=== PATIENT | male | born 1965 | race Caucasian/White ===

== ENCOUNTER 2020-10-27 03:54 | Inpatient (IN) | payer SELFPAY ==
[2020-10-27] VITALS (12 sets, daily range): BP systolic 114–147; BP diastolic 77–102; PULSE 88–129; TEMP 97.2–99.2
[~2020-10-27] VITALS: Ht 172.7 cm; Wt 81.8 kg
[~2020-10-27 03:54] MED LIST: B-121000 MCG PO; DUO-KAPS1 CAP PO; FOLIC ACID 11 MG/TA1 PO; MIRTAZAPINE7.5 MG PO; NO HOME MEDICATIONS; NORCO 325 MG-51 TAB PO; PREDNISONE20 MG PO; REMERON 15M15 MG/TA1 PO; THIAMINE 1100 MG/TAB PO; TOPROL XL 25MG25 MG PO
[2020-10-27 04:42] LABS: BASO # 0.1 (0.0-0.2); BASO % 1.3 % (0.0-2.0); EOS % 0.9 % (0-4.0); GRAN # 2.6 (1.4-6.5); GRAN % 57.5 % (42.2-75.2); HEMATOCRIT 44.7 % (42.0-52.0); HEMOGLOBIN 15.5 g/dl (13.5-18.0); LYMPH # 1.5 (1.2-3.4); LYMPH % 32.2 % (20.0-51.0); MEAN CELL VOLUME 106 fl (80.0-100.0); MEAN CORPUSCULAR HEMOGLOBIN 37 pg (27.0-31.0); MEAN CORPUSCULAR HGB CONC 35 g/dl (33.0-37.0); MEAN PLATELET VOLUME 9.3 fl (7.4-10.4); MONO # 0.4 (0.1-0.6); MONO % 7.9 % (1.7-9.3); PLATELET COUNT 159 K/mm3 (130-400); REDCELL DISTRIBUTION WIDTH-CV 12.3 % (11.5-14.5)
[2020-10-27 04:53] LABS: ALANINE AMINOTRANSFERASE 49 U/L (4-49); ALKALINE PHOSPHATASE 140 U/L (50-136); ANION GAP 11 mmol/L (7-16); AST,SGOT 130 U/L (15-37); BILIRUBIN,TOTAL 0.5 mg/dL (0.0-1.0); BLOOD UREA NITROGEN 9 mg/dL (9-20); CALCIUM 8.5 mg/dL (8.4-10.2); CARBON DIOXIDE 23 mmol/L (22-30); CHLORIDE 108 mmol/L (98-107); CREATININE, serum 0.83 (0.66-1.25); GLUCOSE 99 mg/dL (74-106); POTASSIUM 3.9 mmol/L (3.4-5.0); SODIUM 142 mmol/L (137-145); TOTAL PROTEIN 6.5 gm/dL (6.4-8.2)
[2020-10-27 04:56] LABS: ACETAMINOPHEN < 10 ug/mL (10-30); SALICYLATE < 1.0 mg/dL
[2020-10-27 05:03] LABS: ALCOHOL(ethanol),MEDICAL 320 mg/dL
[2020-10-27 05:15] LABS: COLLECTION METHOD CLEAN CATCH
[2020-10-27 05:28] LABS: TRICYCLIC ANTIDEPRESS URINE NEGATIVE
[2020-10-27 05:33] LABS: PH 5 (5-8); SQUAMOUS EPITHELIAL None Seen /hpf; URINE APPEARANCE Hazy; URINE BACTERIA None Seen /hpf; URINE BILIRUBIN Negative (NEGATIVE); URINE BLOOD 2+ (NEGATIVE); URINE COLOR Yellow; URINE GLUCOSE Negative (NEGATIVE); URINE KETONE Trace (NEGATIVE); URINE LEUKOCYTE ESTERASE Negative (NEGATIVE); URINE NITRATE Negative (NEGATIVE); URINE PROTEIN(semi-quant) 1+ (NEGATIVE); URINE RBC 20-50 /hpf; URINE UROBILINOGEN >=4.0 mg/dL (NEGATIVE)
--- NOTE | 2020-10-27 10:30 | NUR ---
Pt arrived to floor from ER. Resting quietly in chair at side of bed, alert and completely oriented. Drinking a lot of water. Denies needs, moderate shaking and elevated BP and anxiety, orders received to implement CIWA protocol. Will continue tomonitor.
[2020-10-27 12:47] LABS: INR 0.9 (0.8-3.0); PROTHROMBIN TIME 10.1 SECONDS (9.7-12.8)
[2020-10-27 12:49] LABS: PARTIAL THROMBOPLASTIN TIME 34.9 SECONDS (26.0-37.0)
[2020-10-27 12:50] LABS: MAGNESIUM 1.9 mg/dL (1.6-2.3)
--- NOTE | 2020-10-27 14:31 | NUR ---
Report given to ANTONI Bueno. PT in chair at side of bed resting, HR is much more tachycardic now. Still remains oriented. Called MARIEL Guillaume to assist with locating numbers for family members. Ximena to continue care.
[2020-10-27 15:34] LABS: TROPONIN-I < 0.012 ng/mL (0.000-0.035)
--- NOTE | 2020-10-27 16:01 | NUR ---
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 Doctor aware.
--- NOTE | 2020-10-27 16:08 | NUR ---
SW contacted in regards to patient's family contact or next of kin. Patient does not have any family members listed and states that he does not think it would be helpful to list them. MARIEL followed up with ED nurse in regard to information in regards to patient contacts. ER nurse Kacey stated that patient was brought in by [facility] and was informed to contact them in regards to patient care. MARIEL obtained contact number for [facility] [phone] staff member stated that patient plan was to return to [facility] upon DC and they would like to be informed of such information. SW confirmed information with patient in regards to going to [facility] upon DC. SW will continue to follow.
--- NOTE | 2020-10-27 17:50 | NUR ---
Patient has been sitting in the recliner reading a book or magazine, states that he doesnt watch TV. A&Ox3. VSS, HR tachycardic, doctor aware and being monitored. IV CDI, fludis infusing. Detox protocol in place. No further needs expressed from the patient. Call light within reach. Chair alarm on and door left open
[2020-10-28] VITALS (15 sets, daily range): BP systolic 121–150; BP diastolic 78–93; PULSE 69–165; TEMP 97.3–99.4
[2020-10-28 06:37] LABS: MEAN CELL VOLUME 110 fl (80.0-100.0); MEAN CORPUSCULAR HGB CONC 34 g/dl (33.0-37.0); MEAN PLATELET VOLUME 9.7 fl (7.4-10.4); PLATELET COUNT 116 K/mm3 (130-400); RED BLOOD COUNT 3.29 M/mm3 (4.20-5.60); REDCELL DISTRIBUTION WIDTH-CV 12.4 % (11.5-14.5)
[2020-10-28 06:39] LABS: ALBUMIN 2.9 gm/dL (3.5-5.0); CALCIUM 8.4 mg/dL (8.4-10.2); CREATININE, serum 0.72 (0.66-1.25); MAGNESIUM 1.6 mg/dL (1.6-2.3); PHOSPHOROUS 4.2 mg/dL (2.5-4.5); POTASSIUM 3.5 mmol/L (3.4-5.0)
--- NOTE | 2020-10-28 07:05 | NUR ---
Report with ANTONI Morrison. Pt up to bathroom and back to bed, slightly wobbly gait. IVF's infusing per orders. No further needs reported. Call light in reach. Bed alarm on.
[2020-10-28 07:13] LABS: HEMATOCRIT 36.3 % (42.0-52.0); HEMOGLOBIN 12.5 g/dl (13.5-18.0); MEAN CORPUSCULAR HEMOGLOBIN 38 pg (27.0-31.0)
--- NOTE | 2020-10-28 09:00 | NUR ---
Assessment complete. Pt resting in bed, A&O x 4, denies pain at this time. Physical assessment unremarkable. IVF's infusing per orders through right AC site without s/s of complications. No further needs reported. Call light in reach.
[2020-10-28 09:19] LABS: FOLATE (FOLIC ACID) >20.0 ng/mL (7.0-31.4)
--- NOTE | 2020-10-28 10:45 | NUR ---
Pt having increased anxiety after being up to use bathroom and talking with PA. Tremors to bilat upper ext increased. PRN Ativan administered per protocol.
[2020-10-28 10:57] LABS: COLLECTION METHOD CLEAN CATCH
[2020-10-28 11:11] LABS: MUCOUS Present /lpf; PH 6 (5-8); URINE APPEARANCE Clear; URINE BACTERIA None Seen /hpf; URINE BILIRUBIN Negative (NEGATIVE); URINE BLOOD Negative (NEGATIVE); URINE COLOR Yellow; URINE GLUCOSE Negative (NEGATIVE); URINE KETONE Negative (NEGATIVE); URINE LEUKOCYTE ESTERASE Negative (NEGATIVE); URINE NITRATE Negative (NEGATIVE); URINE PROTEIN(semi-quant) Negative (NEGATIVE); URINE RBC 0-2 /hpf; URINE UROBILINOGEN Negative (NEGATIVE); URINE WBC 0-2 /hpf
[2020-10-28 11:23] LABS: SQUAMOUS EPITHELIAL 0-2 /hpf
--- NOTE | 2020-10-28 11:23 | NUR ---
SW met with patient to conduct intake assessment. Patient lives at home alone in [place]. Patient states that his ex Lakesha Lara is his DPOA-HC. The phone number listed for Lakesha does not work. Patient does not have his phone and is unable to verify Lakesha's phone number. Patient reports that he has paperwork at home. SW requested that patient bring a copy to the hospital after discharge for records. Patient confirmed understanding and agreed. Patient does not have DME and requires no assistance with ADLs. Patient does not have a PCP but would like to be set up with one through [facility] or [facility]. MARIEL relayed this information to RN Shayna would will "leave a note" for staff to address during the weekday. Patient uses [facility] for pharmacy needs. Patient plans to return home at discharge. Per patient request, he wanted family contacted to notify them of his admission. At this time, the only number SW can find is a non-functional number for ex- Summer Lara ([phone]). SW will continue to look. Per RN statement, patient was admitted due to desire for substance use treatment. Due to self pay status, patient was provided with phone number for [facility] and insructed that he would have to call [facility] himself and arrange for intake assessment. Patient confirmed understanding. Phone number for [facility] was provided to patient. SW placed a call to Alice Garcia in finance due to: patient's self pay status and patient desire for assistance. Patient reported that he is unemployed and would like to know if there is any assistance that can be provided to him. SW did instruct patient that he would need to file for unemployment but that SW will inquire if [facility] can assist him. Patient would also like assistance with medicaid eligibility and application assisatnce in addition to reagan appliation for assistance paying for hospital stay. Patient will need assistance with medication assistance; however, patient will not discharge today. Please follow up on Thursday for medication assistance voucher if patient is discharging. There were no other questions or concerns at this time. Social work will continue to follow as needs progress.
--- NOTE | 2020-10-28 18:50 | NUR ---
Report with ANTONI Morrison. Pt sitting up in bed visiting with family, questions invited and answered, denies needs at this time. Call light in reach. Bed alarm on.
[2020-10-29] VITALS (10 sets, daily range): BP systolic 113–146; BP diastolic 81–92; PULSE 72–107; TEMP 97.6–98.5
[2020-10-29 06:43] LABS: BASO % 0.3 % (0.0-2.0); EOS # 0.1 (0.0-0.7); EOS % 1.5 % (0-4.0); GRAN # 4.4 (1.4-6.5); HEMATOCRIT 38.3 % (42.0-52.0); HEMOGLOBIN 13.1 g/dl (13.5-18.0); LYMPH # 1.1 (1.2-3.4); LYMPH % 17.9 % (20.0-51.0); MEAN CELL VOLUME 109 fl (80.0-100.0); MEAN CORPUSCULAR HEMOGLOBIN 37 pg (27.0-31.0); MEAN CORPUSCULAR HGB CONC 34 g/dl (33.0-37.0); MEAN PLATELET VOLUME 9.6 fl (7.4-10.4); MONO # 0.3 (0.1-0.6); MONO % 5.1 % (1.7-9.3); PLATELET COUNT 102 K/mm3 (130-400); RED BLOOD COUNT 3.51 M/mm3 (4.20-5.60); REDCELL DISTRIBUTION WIDTH-CV 12.1 % (11.5-14.5)
[2020-10-29 06:46] LABS: ALBUMIN 3.1 gm/dL (3.5-5.0); BILIRUBIN,TOTAL 0.9 mg/dL (0.0-1.0); CALCIUM 8.8 mg/dL (8.4-10.2); CREATININE, serum 0.6 (0.66-1.25); POTASSIUM 3.2 mmol/L (3.4-5.0); TOTAL PROTEIN 5.4 gm/dL (6.4-8.2)
--- NOTE | 2020-10-29 07:00 | NUR ---
Report received form ANTONI Morrison. PT in bed resting with eyes closed, will continue to monitor.
--- NOTE | 2020-10-29 09:30 | NUR ---
Initial visit; Patient was receptive to Oncology Social Work offering prayer and God's blessings. Oncology Social Work spoke briefly with patient about his health issues and mentioned that she is available to listen and offer help and prayer.
--- NOTE | 2020-10-29 10:53 | NUR ---
Assessment charted. Pt alert and oriented today. Denies pain. Sitting up but has little appetite. Will continue to monitor.
--- NOTE | 2020-10-29 13:06 | NUR ---
Pump Installer contacted the [facility] and spoke with on of their therapists who advised patient is still on their bed board and they plan to take patient back as long as patient is agreeable. SW updated ANTONI Mendes and ESTRELLITA Francisco.
--- NOTE | 2020-10-29 18:03 | NUR ---
Pt has done very well over shift. Napped for a while this afternoon then ex- visitied Janki for some time. Pt is alert and oriented, able to keep scoring down and did not need any ativan coverage for some time this afternoon. Score increased this evening from shakiness, denies needs, will give bedside shift report to nigcadehift nruse who will resume care.
[2020-10-30] VITALS (8 sets, daily range): BP systolic 92–122; BP diastolic 66–91; PULSE 79–127; TEMP 97.7–98.9
--- NOTE | 2020-10-30 06:50 | NUR ---
awake resting in bed, bedside shift report received from ANTONI Morrison
[2020-10-30 07:01] LABS: HEMATOCRIT 40.6 % (42.0-52.0); HEMOGLOBIN 13.8 g/dl (13.5-18.0); MEAN CELL VOLUME 110 fl (80.0-100.0); MEAN CORPUSCULAR HEMOGLOBIN 38 pg (27.0-31.0); MEAN CORPUSCULAR HGB CONC 34 g/dl (33.0-37.0); MEAN PLATELET VOLUME 10.2 fl (7.4-10.4); PLATELET COUNT 105 K/mm3 (130-400); RED BLOOD COUNT 3.68 M/mm3 (4.20-5.60); REDCELL DISTRIBUTION WIDTH-CV 12.3 % (11.5-14.5)
[2020-10-30 07:21] LABS: CREATININE, serum 0.72 (0.66-1.25); MAGNESIUM 1.8 mg/dL (1.6-2.3); POTASSIUM 3.5 mmol/L (3.4-5.0)
[2020-10-30] MEDS ORDERED: DUO-KAPS1 CAP PO (09:09)
[2020-10-30] MEDS ORDERED: B-121000 MCG PO (09:09)
[2020-10-30] MEDS ORDERED: PROTONIX 40MG T40 MG PO (09:09)
[2020-10-30] MEDS ORDERED: THIAMINE 1100 MG/TAB PO (09:09)
[2020-10-30] MEDS ORDERED: FOLIC ACID 11 MG/TA1 PO (09:09)
[2020-10-30] MEDS ORDERED: NICODERM C14 MG/PATC TD (09:10)
--- NOTE | 2020-10-30 09:30 | NUR ---
full assessment completed, see interventions for further info
--- NOTE | 2020-10-30 11:00 | NUR ---
in bed and appears to be sleeping,
--- NOTE | 2020-10-30 12:13 | NUR ---
resting in bed with eyes closed
--- NOTE | 2020-10-30 12:28 | NUR ---
assisted up to bathroom with myself and student nurse, moving well only needs assistance standing from bed
--- NOTE | 2020-10-30 12:30 | NUR ---
up and in shower with PATENT PROSECUTION [employer] assistance, denies needs
--- NOTE | 2020-10-30 13:31 | NUR ---
Dr Coppola and care team in to see patient and ,
--- NOTE | 2020-10-30 13:32 | NUR ---
up and about in room independently
--- NOTE | 2020-10-30 14:55 | NUR ---
discharge instructions given to patient anf verbalizes understanding
--- NOTE | 2020-10-30 15:15 | NUR ---
discharged ambulatory
--- NOTE | 2020-10-30 15:16 | NUR ---
Systems Planner was notified by Hospitalist that patient is ready for discharge today and would like to return to the [facility]. MARIEL contacted the [facility] who advised they can excelsior picker patient today at 1530. MARIEL faxed discharge orders to the [facility]. Staff at the [facility] advised they will provide a medication voucher for patient as long as medications are sent to [facility]. MARIEL spoke with ESTRELLITA Martinez who will send medications to [facility]. MARIEL met with patient to provide transport time and patient is agreeable to discharge plan.
== END 2020-10-30 15:15 | disposition home or self-care (01) | DRG 897 ==
LOC: COL.ER 03:54 → MEDICAL 09:20
PROVIDERS: Emergency Medicine; Physician Assistant; ADMIT Family Medicine
PROC: HZ2ZZZZ Detoxification Services for Substance Abuse Treatment (ICD-10-PCS; principal; 2020-10-27)
DX: F10.139 Alcohol abuse with withdrawal, unspecified (principal); R45.851 Suicidal ideations; Y90.8 Blood alcohol level of 240 mg/100 ml or more; E87.6 Hypokalemia; Z90.89 Acquired absence of other organs; F17.210 Nicotine dependence, cigarettes, uncomplicated; R31.9 Hematuria, unspecified; F17.200 Nicotine dependence, unspecified, uncomplicated; D75.89 Other specified diseases of blood and blood-forming organs; F43.10 Post-traumatic stress disorder, unspecified; F41.9 Anxiety disorder, unspecified; E53.8 Deficiency of other specified B group vitamins
CPT/HCPCS: 99222-AI; 99232-AI; 99239; J1630; J1650; J2060; J7030

== ENCOUNTER → 2021-03-16 | Emergency (ER) | payer SELFPAY ==
[~2021-03-16] VITALS: Ht 170.2 cm; Wt 72.7 kg
[~2021-03-16] MED LIST changes: +NICODERM C14 MG/PATC TD; +PROTONIX 40MG T40 MG PO
[2021-03-16 15:34] VITALS: TEMP 98.2
[2021-03-16 16:02] LABS: COLLECTION METHOD CLEAN CATCH
[2021-03-16 16:11] LABS: MUCOUS Present /lpf; PH 5 (5-8); SQUAMOUS EPITHELIAL None Seen /hpf; URINE APPEARANCE Clear; URINE BACTERIA None Seen /hpf; URINE BILIRUBIN Negative (NEGATIVE); URINE BLOOD 1+ (NEGATIVE); URINE COLOR Yellow; URINE GLUCOSE Negative (NEGATIVE); URINE KETONE Negative (NEGATIVE); URINE LEUKOCYTE ESTERASE Negative (NEGATIVE); URINE NITRATE Negative (NEGATIVE); URINE PROTEIN(semi-quant) Negative (NEGATIVE); URINE RBC 0-2 /hpf; URINE UROBILINOGEN Negative (NEGATIVE)
[2021-03-16 16:16] LABS: BASO % 0.2 % (0.0-2.0); EOS % 0.4 % (0-4.0); GRAN # 6.3 (1.4-6.5); HEMATOCRIT 41.7 % (42.0-52.0); HEMOGLOBIN 14.3 g/dl (13.5-18.0); LYMPH # 1.2 (1.2-3.4); LYMPH % 14.7 % (20.0-51.0); MEAN CELL VOLUME 107 fl (80.0-100.0); MEAN CORPUSCULAR HEMOGLOBIN 37 pg (27.0-31.0); MEAN CORPUSCULAR HGB CONC 34 g/dl (33.0-37.0); MEAN PLATELET VOLUME 9.7 fl (7.4-10.4); MONO # 0.5 (0.1-0.6); MONO % 6.2 % (1.7-9.3); PLATELET COUNT 184 K/mm3 (130-400); REDCELL DISTRIBUTION WIDTH-CV 13.5 % (11.5-14.5)
[2021-03-16 16:20] LABS: TRICYCLIC ANTIDEPRESS URINE NEGATIVE
[2021-03-16 16:38] LABS: BLOOD UREA NITROGEN 6 mg/dL (9-20); CALCIUM 8.7 mg/dL (8.4-10.2); CHLORIDE 112 mmol/L (98-107); CREATININE, serum 0.97 (0.66-1.25); GLUCOSE 101 mg/dL (74-106); SODIUM 145 mmol/L (137-145)
[2021-03-16 16:39] LABS: ALANINE AMINOTRANSFERASE 55 U/L (4-49); ALBUMIN 4.4 gm/dL (3.5-5.0); ALKALINE PHOSPHATASE 52 U/L (50-136); AST,SGOT 109 U/L (15-37); BILIRUBIN,TOTAL 0.3 mg/dL (0.0-1.0); TOTAL PROTEIN 7.3 gm/dL (6.4-8.2)
[2021-03-16 16:40] LABS: ANION GAP 19 mmol/L (7-16); TROPONIN-I < 0.012 ng/mL (0.000-0.035)
[2021-03-16 16:48] LABS: CARBON DIOXIDE 14 mmol/L (22-30)
[2021-03-16 17:03] LABS: LIPASE 176 U/L (23-300)
[2021-03-16 17:09] LABS: ALCOHOL(ethanol),MEDICAL 378 mg/dL; C-REACTIVE PROTEIN < 0.5 mg/dL (0.0-0.9)
[2021-03-16 17:32] VITALS: BP 98/65; PULSE 92
== END ==
LOC: COL.ER 15:32
PROVIDERS: Nurse Practitioner Primary Care
DX: F10.129 Alcohol abuse with intoxication, unspecified (principal); S80.212A Abrasion, left knee, initial encounter; F17.200 Nicotine dependence, unspecified, uncomplicated; W01.198A Fall on same level from slipping, tripping and stumbling with subsequent striking against other object, initial encounter; Y92.810 Car as the place of occurrence of the external cause
CPT/HCPCS: J7030